=== PATIENT | female | born 1960 | race Caucasian/White ===

== ENCOUNTER 2017-09-10 09:00 | Day surgery (SDC) | payer MEDICAID ==
[2017-09-09 15:45] LABS: BASOPHILS 0.2 % (0-2); EOSINOPHILS 1.1 % (0-7); HEMATOCRIT 41.6 % (36.0-48.0); HEMOGLOBIN 14.4 g/dL (12-16); IMMATURE GRANULOCYTES 0.2 % (0-5); LYMPHOCYTES 37.4 % (15-50); MCH 33.3 pg (26.0-34.0); MCHC 34.6 g/dL (31.0-37.0); MCV 96.3 fL (80.0-100.0); MEAN PLATELET VOLUME 9.3 fL (7.4-10.4); MONOCYTES 6.7 % (2-11); NEUTROPHILS 54.4 % (40-80); PLATELET COUNT 275 10x3/uL (130-400); RBC 4.32 10x6/uL (4.00-5.40); RDW 12.3 % (11.5-14.5); WBC 12.3 10x3/uL (4.8-10.8)
[2017-09-09 16:05] LABS: CALC OSMOLALITY 282 mosm/kg (275-300); CALCIUM 9.5 mg/dL (8.5-10.1); CARBON DIOXIDE 31.4 mmol/L (21.0-32.0); CHLORIDE - SERUM 104 mmol/L (98-107); CREATININE - SERUM 0.7 mg/dL (0.6-1.3); GLUCOSE 91 mg/dL (74-106); POTASSIUM - SERUM 3.9 mmol/L (3.5-5.1); SODIUM 142 mmol/L (136-145); UREA NITROGEN 13 mg/dL (7-18); eGFR NON AFRICAN AMERICAN > 90 mL/min (90-120)
[~2017-09-10] VITALS: Ht 162.6 cm; Wt 55.5 kg
--- NOTE | ~2017-09-10 | OP ---
PATIENT NAME: MORGAN STEIN MEDICAL RECORD: [id number] :64 LOCATION:D.[facility] ADMISSION DATE: SURGEON: ANGEL ANGULO MD DATE OF OPERATION: 09/10/2017 PREOPERATIVE DIAGNOSIS: Postmenopausal bleeding. POSTOPERATIVE DIAGNOSES: 1. Cervical stenosis. 2. Postmenopausal bleeding. 3. Possible endometrial polyp. PROCEDURES: 1. Dilation of cervix. 2. Hysteroscopy. 3. Curettage. SURGEON: Agnel Angulo MD ANESTHESIOLOGIST: Cynthia Richardson CRNA. ANESTHESIA: General anesthetic with endotracheal intubation. FINDINGS: Cervical os was noted to be stenotic. After dilation, uterus sounds to 7 cm. Polypoid mass was seen posteriorly. Otherwise, the endometrium shows atrophy. Vaginal vault is pale with poor rugation consistent with vaginal atrophy. SPECIMENS REMOVED: Endometrial curettings. SPECIMEN DISPOSITION: Pathology. ESTIMATED BLOOD LOSS: Less than or equal to 25 cc. FLUIDS: 400 cc of lactated Ringer's. URINE OUTPUT: Quantity sufficient void. COMPLICATIONS: None. DRAINS: None. INDICATIONS: The patient is a 56-year-old female with postmenopausal bleeding. The patient was consented for dilation and curettage with hysteroscopy. DESCRIPTION OF PROCEDURE: After informed consent was assured, the patient was taken to the operating room, where anesthetic was obtained and she was placed in Rajesh stirrups. The patient now prepped and draped. Speculum was introduced in the vagina. The cervix was grasped and dilated with Hegar dilators. Using the small size dilators, the serial dilation concludes with placement of the hysteroscope. The hysteroscope was advanced under direct visualization with the above findings. After this was completed, further dilation continued until a #2 curette can be utilized to obtain uterine specimen. Polypoid mass was removed during this. Specimen sent to pathology. Single-tooth tenaculum, which was used to steady the cervix during this procedure, was removed. Adequate OPERATIVE REPORT [id number] MORGAN STEIN hemostasis was noted. The patient will be taken down from the stirrups and taken to the recovery room. Sponge, lap, and needle counts correct times 2. TRANSINT:[id number] Voice Confirmation ID: [id number] DOCUMENT ID: [id number] ANGEL ANGULO MD at 1144 CC: [id number] DICTATION DATE: 09/10/17 1122 [employer] COLLE[employer] DRIVER: 09/10/17 1303 [facility] [place] 09/10/17 [place] [id number] [place] [id number]
[~2017-09-10 09:00] MED LIST: CELEXA40 MG PO; CHLORTHALIDONE25 MG PO; COZAAR50 MG; ESTRACE1 MG PO; LIPITOR10 MG; PROVERA2.5 MG PO; XANAX0.5 MG PO
[2017-09-10 09:14] VITALS: BP 114/65; Ht 162.6 cm; Wt 55.5 kg
[2017-09-10 09:43] LABS: HCG URINE NEGATIVE (NEGATIVE)
== END 2017-09-10 14:10 | disposition home or self-care (01) ==
LOC: D.OPS 09:00
PROVIDERS: Anesthesiology; Obstetrics & Gynecology
DX: N95.0 Postmenopausal bleeding (principal); N88.2 Stricture and stenosis of cervix uteri; N84.0 Polyp of corpus uteri; Z01.812 Encounter for preprocedural laboratory examination

== ENCOUNTER → 2018-05-07 20:17 | Outpatient (CLI) | payer MEDICAID ==
[2017-09-10 09:14] VITALS: BMI 21.0
== END | disposition home or self-care (01) ==
LOC: D.MAMMO 11:30
DX: Z12.31 Encounter for screening mammogram for malignant neoplasm of breast (principal)

== ENCOUNTER 2019-01-25 07:25 | Day surgery (SDC) | payer MEDICAID ==
[2019-01-22 11:18] LABS: BASOPHILS 0.3 % (0-2); EOSINOPHILS 3.5 % (0-7); HEMATOCRIT 39.2 % (36.0-48.0); HEMOGLOBIN 13.2 g/dL (12-16); IMMATURE GRANULOCYTES 0.2 % (0-5); LYMPHOCYTES 39.6 % (15-50); MCH 32.2 pg (26.0-34.0); MCHC 33.7 g/dL (31.0-37.0); MCV 95.6 fL (80.0-100.0); MONOCYTES 8.9 % (2-11); NEUTROPHILS 47.5 % (40-80); PLATELET COUNT 293 10x3/uL (130-400); RDW 12.2 % (11.5-14.5); WBC 6.3 10x3/uL (4.8-10.8)
[2019-01-22 11:26] LABS: CALC OSMOLALITY 277 mosm/kg (275-300); CALCIUM 9.4 mg/dL (8.5-10.1); CARBON DIOXIDE 33.4 mmol/L (21.0-32.0); CHLORIDE - SERUM 101 mmol/L (98-107); CREATININE - SERUM 0.8 mg/dL (0.6-1.3); GLUCOSE 102 mg/dL (74-106); SODIUM 138 mmol/L (136-145); UREA NITROGEN 17 mg/dL (7-18); eGFR NON AFRICAN AMERICAN 78 mL/min (90-120)
[2019-01-25] VITALS (9 sets, daily range): BP systolic 91–123; BP diastolic 56–76; Ht 154.9 cm; Wt 58.2 kg
[~2019-01-25] VITALS: Ht 154.9 cm; Wt 58.2 kg
[~2019-01-25 07:25] MED LIST changes: -COZAAR50 MG; +COZAAR50 MG PO
[2019-01-25 08:29] LABS: HCG URINE NEGATIVE (NEGATIVE)
--- NOTE | 2019-01-25 15:30 | NUR ---
RECEIVED PT FROM VIA STRETCHER TO ROOM 1217. PT TRANSFERS ONTO BED PER SELF. PT AWAKE. AAO X 3. VSS. BED LOCKED AND PLACED IN LOW POSITION. 3 LAP INCISIONS NOTED. NO DRAINAGE, REDNESS OR SWELLING NOTED. ICE PACK TO INCISION. NEG HOMANS' SIGN. PPP. NO EDEMA NOTED TO BLE. LU TO GRAVITY DRAINING DARK, YELLOW URINE. SCDS ON BLE. PUMP ON. PT C/O INCISIONAL PAIN. MORPHINE CUTTER MACHINE TENDER STARTED ORDERED. PT INSTRUCTED ON MED AND USE OF BUTTON. PT VERBALIZES UNDERSTANDING. SR UP X2. CALL LIGHT IN REACH.
--- NOTE | 2019-01-25 16:40 | NUR ---
ICE PACK TO INCISIONS. ICE CHIPS AND LEMON EEK SODA PROVIDED TO PT. PT DENIES NAUSEA. PT INSTRUCTED ON INCENTIVE SPIROMETER. PULLS [id number].
--- NOTE | 2019-01-25 17:30 | NUR ---
ASSESSEMENT AND HISTORY OBTAINED. PT DENIES C/O. STATES PAIN MED RELIEVING PAIN. SO AT BEDSIDE.
--- NOTE | 2019-01-25 18:30 | NUR ---
I/O COMPLETED. PT DENIES NEEDS OR C/O.
--- NOTE | 2019-01-25 19:45 | NUR ---
ASSESSMENT PER FLOW SHEET, VS OBTAINED, IV IN LEFT HAND INTACT WITH NO REDNESS OR EDEMA INFUSING VIA PUMP LR AT 125 ML/HR PER MD ORDERS, SEE EMAR, 2 LAP AND 1 UMB INCISION WITH DERMABOND CDI WITH NO DRAINAGE NOTED, FRESH ICE PACK TO ABD, LU CATH INTACT DRAINING DARK YELLOW URINE, PT INST ON AND ENC TO DRINK PLENTY OF FLUIDS, PT VERBALIZES UNDERSTANDING, JACKIE PAD PLACED, NO VAG BLEEDING NOTED, PT REPORTS FLATUS, SCD'S ON AND WORKING PROPERLY, PT REQUESTED AND SERVED CHICKEN BROTH, FRESH H20 SERVED ALSO, BED IN LOW POSITION, SIDE RAILS X 2, CALL LIGHT IN REACH
--- NOTE | 2019-01-25 20:20 | NUR ---
PT VISITING WITH S/O, DENIES NEEDS AT THIS TIME
--- NOTE | 2019-01-25 21:18 | NUR ---
PT VISITING WITH S/O, RATES INC PAIN 04/16, USING MILL ORDER SCHEDULER INST, S/O PROVIDED RECLINER AND BEDDING, PT SERVED FRESH H20, DENIES FURTHER NEEDS
--- NOTE | 2019-01-25 22:18 | NUR ---
NEW BAG OF LR HUNG PER MD ORDERS, SEE EMAR, PT INST ON AND VERBALIZES UNDERSTANDING, DENIES NEEDS AT THIS TIME
--- NOTE | 2019-01-25 23:15 | NUR ---
SHIFT REPORT TO RENE POOLE RN
[2019-01-26 00:25] VITALS: BP 103/68
--- NOTE | 2019-01-26 00:25 | NUR ---
pt is awake at this time. VS taken. pt does not c/o any pain at this time but she does have a BOLT SAWYER pump. Ice pack to abd changed. SCD's in place. IV site looks good with LR running at 125 ml/hr. Pt asked for more water and a sprite, which was given.
--- NOTE | 2019-01-26 02:40 | NUR ---
PT RESTING QUIETLY IN BED WITH EYES OPEN. TORADOL ADMINISTERED PER MD ORDERS, SEE EMAR. LU CATHETER EMPTIED OF 325ML CLEAR YELLOW URINE AT THIS TIME. PT DENIES OTHER NEEDS, BED REMAINS LOCKED IN LOW POSITION, CALL MIRAMONTES AND TRAY TABLE IN REACH. WILL CONTINUE TO MONITOR
--- NOTE | 2019-01-26 03:10 | NUR ---
CALED TO ROOM BY PT, SCD MACHINE BEEPING, RN ADJUSTED AND PT DENIES PAIN OR OTHER NEEDS. WILL CONTINUE TO MONITOR.
--- NOTE | 2019-01-26 05:10 | NUR ---
PATIENT RESTING QUIETLY WITH EYES CLOSED, RESPIRATIONS EVEN AND NON LABORED. NO DISTRESS NOTED. WILL CONTINUE TO MONITOR.
--- NOTE | 2019-01-26 05:50 | NUR ---
DR ANGULO CALLED [facility], NEW ORDERS NOTED.
--- NOTE | 2019-01-26 06:10 | NUR ---
PT LU CATHETER REMOVED WITHOUT INCIDENT PER MD ORDERS. 75 ML CLEAR YELLOW URINE NOTED IN THE UROMETER. PT DENIES OTHER NEEDS. WILL CONTINUE TO MONITOR
[2019-01-26 08:45] VITALS: BP 114/76
--- NOTE | 2019-01-26 08:50 | NUR ---
AM ASSESSMENT COMPLETED, SEE FLOWSHEET. PT STATES SHE IS READY TO GET UP TO THE BATHROOM, AND IS READY TO TAKE SOMETHING FOR PAIN, PT IS RATING PAIN TO ABDOMEN/INCISIONAL AREAS 2/10, "ACHING". SEE EMAR FOR ALL MEDS ADM BY THIS RN. IV SL, FLUSHED WITH 10 CC'S NS, EASILY, NO PAIN OR SWELLING NOTED TO IV SITE. SCD'S REMOVED TO ALLOW PT TO AMBULATE. PT THEN UP TO BR, GAIT SLOW AND STEADY. PT VOIDS 200 ML'S INTO [place] HAT, YELLOW URINE, NO DIFFICULTY VOIDING REPORTED. PERICARE DONE WITH WARM WET WASHCLOTHS, PER SELF, PERIPAD/PANTIES ON, AND PT IS DRESSED IN OWN CLOTHING. BACK TO BED, PT STATES "I'M READY TO GO NOW". AT BEDSIDE. LARGE MUG OF ICE WATER SERVED TO TO PT. SRUP X2, CALL LIGHT AND PHONE WITHIN REACH.
--- NOTE | 2019-01-26 10:15 | NUR ---
DR. ANGULO CALLS TO UNIT, PROGRESS REPORT GIVEN TO . MD WILL PLACE DISCHARGE ORDERS.
--- NOTE | 2019-01-26 10:40 | NUR ---
DR. ANGULO ON UNIT, TO ROOM, SPEAKING WITH PT REGARDING PLAN OF CARE AND DISCHARGE. PRESCRIPTIONS WRITTEN AND PLACED ON CHART BY MD. PT IS DRESSED IN OWN CLOTHING AND READY FOR DISCHARGE.
[2019-01-26] MEDS ORDERED: NEURONTIN 300300 MG PO (11:04)
[2019-01-26] MEDS ORDERED: MOBIC7.5 MG PO (11:07)
[2019-01-26] MEDS ORDERED: PERCOCET 7.5/321 TAB PO (11:08)
--- NOTE | 2019-01-26 11:45 | NUR ---
DISCHARGE INSTRUCTIONS EXPLAINED TO PT, WITH COPIES PROVIDED TO HER, ALONG WITH PRESCRIPTIONS, AND HYTERECTOMY INSTRUCTION INFORMATION. PT DENIES QUESTIONS. PT THEN DISCHARGED TO PRIVATE VEHICLE BY WHEELCHAIR IN STABLE CONDITION WITH HER .
--- NOTE | 2019-01-28 07:14 | OP ---
PATIENT NAME: MORGAN STEIN MEDICAL RECORD: [id number] :64 LOCATION:D.[facility] ADMISSION DATE: SURGEON: ANGEL ANGULO MD DATE OF OPERATION: 01/25/2019 PREOPERATIVE DIAGNOSIS: Dysfunctional uterine bleeding (persistent postmenopausal bleeding). POSTOPERATIVE DIAGNOSIS: Dysfunctional uterine bleeding (persistent postmenopausal bleeding). PROCEDURE PERFORMED: 1. Diagnostic laparoscopy. 2. Laparoscopically assisted vaginal hysterectomy. 3. Bilateral salpingo-oophorectomy. SURGEON: Angel Angulo MD PERSONAL FINANCE INSTRUCTOR: Mirza. ANESTHESIOLOGIST: Dr. Summers. FIRE INVESTIGATOR: Tony Workman. ANESTHESIA: General. FINDINGS: Uterus is unremarkable. Tubes are interrupted bilaterally. Ovaries are unremarkable. Vaginal mucosa is unremarkable with a grade I uterine prolapse SPECIMENS REMOVED: 1. Uterus and cervix. 2. Bilateral tubes and ovaries. SPECIMEN DISPOSITION: All specimens to pathology. ESTIMATED BLOOD LOSS: Less than or equal to 150 cc. FLUIDS: 1700 cc of lactated Ringer's. URINE OUTPUT: 175 cc of clear urine. COMPLICATIONS: None. DRAINS: Bernal to gravity. INDICATIONS: The patient is a 58-year-old female with a standing history of postmenopausal bleeding. The patient has had D&Cs and workups. The patient reports that the persistent spotting is a negative impact on quality of life and wishes definitive therapy. DESCRIPTION OF PROCEDURE: After informed consent was assured, the patient was taken to the operating room where anesthetic was obtained without difficulty. The patient was now prepped and draped after being placed in [facility] stirrups. Incisions made in the umbilicus to accommodate a 5-mm trocar, which was inserted OPERATIVE REPORT [id number] MORGAN STEIN without difficulty and pneumoperitoneum developed. Accessory ports are now placed in the right and left lower quadrants. Through the right lower quadrant port, a grasper was inserted and the left tube and ovary was elevated. Using a Thunderbeat coagulation cutter, the infundibulopelvic ligament was compressed, coagulated, and . This dissection was carried out underneath the ovary and across the round ligaments. The anterior leaf of the broad ligament was opened and the bladder flap developed to the midline. The posterior leaf was opened and the vessels on the left side, compressed and coagulated at the level of the internal os. This was repeated on the contralateral side. From the left now, a manipulator was inserted and the right ovary and tube was elevated. Using the Thunderbeat coagulation cutting the infundibulopelvic ligament of the right side was compressed, coagulated, and . The dissection was carried out underneath the right ovary and tube across the round ligament and the anterior leaf of the broad ligament was opened with the bladder flap fully developed. The posterior leaf was opened and the vessels of the right side are identified compressed, and coagulated. The pneumoperitoneum was released and the drape covers the operative field as well. Legs were positioned for the vaginal portion of this case. A speculum was inserted into the vagina and with the cervix grasped with Miranda tenaculums, it was deflected anteriorly. The posterior cul-de-sac was entered sharply after mobilizing the bladder and incising the mucosa of the vagina with Bovie cautery. The peritoneum was tagged to the vaginal mucosa. The uterosacral ligaments were grasped with a Karmen-Milaca clamp. The pedicle was mobilized with scissors and a Karmen stitch applied for hemostasis on both right and left sides. The attention was directed anteriorly where the bladder is further mobilized off the cervix. Once the bladder was well out from the operative field, Karmen-Milaca clamps were used to clamp the remaining blood supply to the uterus and cervix. This pedicle was developed sharply and a Karmen stitch applied. The remaining portions of the broad ligament were clamped, cut and tied into the previous dissection encountered. The last pedicle was doubly ligated with a tie on a pass and a [id number] stitch. After removal of the uterus and ovaries, the operative field was inspected and adequate hemostasis was noted. Vicryl stitch was now passed from the posterior cuff through the left uterosacral ligament across the peritoneum posteriorly and out through the right uterosacral ligament and into the posterior vaginal cuff again. This was tagged to be tied later in the case. The cuff was now closed anterior to posterior fashion with running stitch of Monocryl. Care was taken to incorporate the uterosacral ligaments into the closure of the vaginal cuff. After closure of the cuff, the aforementioned stitch that was passed through the posterior vagina is now tied. The vaginal vault was secured with ligament support at the apex. Pneumoperitoneum was reestablished and attention was again directed to the abdomen. With the patient in Trendelenburg position, the pelvis was irrigated and the irrigant removed. All the operative field was inspected and found to be hemostatic. The uterosacral ligaments were reapproximated well in the midline with obliteration of the cul-de-sac. Sponge, lap and needle count was correct times 2. The pneumoperitoneum was released and the accessory trocars were removed. The primary trocars were removed after complete release of the pneumoperitoneum. Skin was closed with a subcuticular stitch and Dermabond was applied. The patient was awakened and went to the recovery room in stable condition. TRANSINT:[id number] Voice Confirmation ID: [id number] DOCUMENT ID: [id number] OPERATIVE REPORT [id number] MORGAN STEIN,ANGEL Hodges MD at 0714 CC: [id number] DICTATION DATE: 01/25/19 1351 PARTNERSHIP MARKETING MANAGER: 01/25/19 1548 [facility] 01/26/19 [place] [id number] [place] [address]
== END 2019-01-26 11:45 | disposition home or self-care (01) ==
LOC: D.OPS 07:25 → D.PAN 09:00 → D.OPS 09:30 → D.PAN 09:30 → D.OPS 10:00 → D.PAN 10:50 → D.OPS 10:50 → D.WS 15:33 → D.OPS 01-26 11:45
PROVIDERS: ATTEND Obstetrics & Gynecology
DX: N93.8 Other specified abnormal uterine and vaginal bleeding (principal)

== ENCOUNTER 2019-06-01 07:07 | Day surgery (SDC) | payer MEDICAID ==
[~2019-06-01] VITALS: Ht 154.9 cm; Wt 64.4 kg
[2019-06-01 07:49] LABS: HEMATOCRIT 40.5 % (36.0-48.0); HEMOGLOBIN 13.5 g/dL (12-16); MCH 31.2 pg (26.0-34.0); MCHC 33.3 g/dL (31.0-37.0); MCV 93.5 fL (80.0-100.0); RBC 4.33 10x6/uL (4.00-5.40); RDW 12.2 % (11.5-14.5); WBC 7.5 10x3/uL (4.8-10.8)
[2019-06-01 08:10] VITALS: BP 117/44; Ht 154.9 cm; Wt 64.4 kg
--- NOTE | 2019-06-01 13:46 | OP ---
PATIENT NAME: MORGAN STEIN MEDICAL RECORD: [id number] :64 LOCATION:D.[facility] ADMISSION DATE: SURGEON: JAY LOVING MD DATE OF OPERATION: 06/01/2019 SURGEON: Jay Loving MD ANESTHESIA: TIVA by Tony Workman CRNA. DIAGNOSIS: Interstitial cystitis. PROCEDURE: Cystoscopy and hydrodistention of the bladder. FINDINGS: Single ureteral orifices bilaterally. Diffusely inflamed bladder without bladder tumors. ESTIMATED BLOOD LOSS: None. CLINICAL HISTORY: This is a 58-year-old female, who has a complaint of recurrent urinary tract infection symptoms. I do not have any actual urine cultures. The one urine culture that I found in March of 2019 showed mixed contamination. She was also started on fluconazole. She may have interstitial cystitis and she comes today for a cystoscopy. If we see the bladder inflammation, I will treat it with hydrodistention. Her insurance does not cover Rimso treatment. SHE IS ALLERGIC TO SULFA. She was given ampicillin and sulbactam doll surgeon to the OR. DESCRIPTION OF PROCEDURE: The patient was given IV sedation. She was placed into lithotomy position and prepped and draped. A 17-Kazakh cystoscope with 30-degree lens was used for visualization. The bladder was diffusely inflamed. No bladder tumors were seen. The bladder was filled to about 600 mL of capacity and the volume was held for about 2 minutes. The bladder was then emptied fully through the sheath and the scope was removed. I will see the patient in followup next week to check on her voiding symptoms. TRANSINT:[id number] Voice Confirmation ID: [id number] DOCUMENT ID: [id number] JAY LOVING MD at 1346 CC: [id number] DICTATION DATE: 06/01/19 1014 SOIL SCIENTIST: 06/01/19 1159 [facility] [address] [place] [address]
--- NOTE | 2019-06-01 13:49 | NUR ---
1055 DRESSED. AWAKE & ALERT. GIVEN DISCHARGE INFORMATION INCLUDING: MED REC, RTC APPT., [facility] D/C INSTRUCTIONS, & POST CYSTOSCOPY D/C INSTRUCTIONS. PT VOICED UNDERSTANDING. TO PRIVATE CAR PER WHEELCHAIR BY VOLUNTEER HOME WITH MORRIS AGGARWAL. Kailey CROWLEY R.N.
== END 2019-06-01 10:55 ==
LOC: D.OPS 07:07 → D.PAN 10:30 → D.OPS 10:55
PROVIDERS: Anesthesiology; ATTEND Urology
DX: N30.10 Interstitial cystitis (chronic) without hematuria (principal); E78.00 Pure hypercholesterolemia, unspecified; I10 Essential (primary) hypertension; Z87.440 Personal history of urinary (tract) infections; N95.2 Postmenopausal atrophic vaginitis

== ENCOUNTER → 2019-06-09 20:15 | Outpatient (CLI) | payer OTHER ==
[2019-06-01 08:10] VITALS: BMI 26.9
[~2019-06-09 20:15] MED LIST changes: +ESTRACE 0.5 MG0.5 MG PO; +MOBIC7.5 MG PO; +NEURONTIN 300300 MG PO; +PERCOCET 7.5/321 TAB PO; +REXULTI1 MG PO; +XANAX0.25 MG PO; -XANAX0.5 MG PO
== END | disposition home or self-care (01) ==
LOC: D.LABREF 20:15
PROVIDERS: ATTEND Urology
DX: R82.90 Unspecified abnormal findings in urine (principal)